=== PATIENT | male | born 1955 | race Caucasian/White ===

== ENCOUNTER 2017-02-14 16:40 | Emergency (ER) | payer BC ==
[2017-02-14 16:47] VITALS: BP 135/77; PULSE 83; RESP 16; TEMP 97.8
--- NOTE | 2017-02-14 17:10 | ED ---
General Adult HPI - General Chief complaint: Extremity Injury, Lower Stated complaint: Knee Pain Time Seen by Provider: 02/14/17 16:51 Source: patient, RN notes reviewed Mode of arrival: ambulatory Limitations: no limitations - History of Present Illness Initial comments: Chief complaint history of present illness this is a 61-year-old male to complaint of pain and swelling to his medial left knee. Patient reports approximately 10 days ago had a slip and fall. The whole leg was swollen and then this is the final results. - Related Data Home Medications Medication Instructions Recorded Confirmed Multivitamins, Thera [Multivitamin 1 tab PO DAILY 02/14/17 02/14/17 (formulary)] [place]-3 Fatty Acids/Fish Oil [Fish 1 cap PO DAILY 02/14/17 02/14/17 Oil 1,000 mg Softgel] Allergies Allergy/AdvReac Type Severity Reaction Status Date / Time No Known Allergies Allergy Verified 02/14/17 17:07 Review of Systems ROS Statement: Those systems with pertinent positive or pertinent negative responses have been documented in the HPI. Review of systems no other complaints other than a large hematoma like accumulation to the distal medial right knee. All systems are reviewed. Past medical problems significant for total left knee, eye surgery. Family history noncontributory no known ALLERGIES. ROS Other: All systems not noted in ROS Statement are negative. Past Medical History Past Medical History: No Reported History History of Any Multi-Drug Resistant Organisms: None Reported Past Surgical History: Joint Replacement Additional Past Surgical History / Comment(s): left knee , eye surgery Past Psychological History: No Psychological Hx Reported Smoking Status: Never smoker Past Alcohol Use History: Occasional Past Drug Use History: None Reported General Exam - General Exam Comments Initial Comments: General: The patient is awake and alert, complains of swelling with probable hematoma medial distal left knee vital signs temp 97.8 pulse 83 respiratory rate 16 pulse ox 90% room air blood pressure 135/77 Musculoskeletal: Examination of the left knee has no pain with varus 5 or drawer testing. Evidence of well-healed scar from a total knee over 20 years ago. He does have a rather large collection of ballotable resolving hematoma in the medial aspect distal part of the left knee. No swelling distal. Neurovascular status was intact. No signs of infection. Limitations: no limitations Course Vital Signs 02/14/17 16:42 Temperature 97.8 F Pulse Rate 83 Respiratory 16 Rate Blood Pressure 135/77 O2 Sat by Pulse 98 Oximetry Medical Decision Making - Medical Decision Making I examine the x-ray of the knee showing intact prosthesis without any acute changes. Small amount of swelling to the medial lateral knee. Awaiting radiologist's final impression. Disposition Clinical Impression: Contusion of left knee and lower leg Disposition: HOME SELF-CARE Condition: Good Instructions: Knee Sprain (ED) Additional Instructions: Follow-up with the orthopedic surgeon as needed. Use warm compresses, Tylenol or ibuprofen for discomfort Referrals: None,Stated [Primary Care Provider] - 1-2 days Time of Disposition: 17:52
--- NOTE | 2017-02-14 17:43 | XR ---
Left knee HISTORY: Trauma and pain, hematoma 3 views of the left knee No comparisons Patient is status post left knee arthroplasty. Small ossific densities at the medial aspect of the francine int are well-corticated and not felt likely to be acute, there are some soft tissue calcifications no darcy superior to the patella which may be vascular, small loose bodies difficult to exclude. Alignment is maintained. Bone mineralization slightly reduced. There is soft tissue swelling. IMPRESSION: No acute fracture or dislocation.
== END 2017-02-14 18:07 | disposition home or self-care (01) ==
LOC: EC 16:40
DX: S80.02XA Contusion of left knee, initial encounter (principal); Z96.652 Presence of left artificial knee joint; Z79.899 Other long term (current) drug therapy; W01.0XXA Fall on same level from slipping, tripping and stumbling without subsequent striking against object, initial encounter
CPT/HCPCS: 99283